=== PATIENT | female | born 1980 ===

== ENCOUNTER → 2021-10-26 | Outpatient (CLI) | payer OTHER | LOC: MHCPAIN 12:55 | DX: M25.512 Pain in left shoulder (principal); M54.12 Radiculopathy, cervical region; M47.892 Other spondylosis, cervical region | CPT/HCPCS: G0463 ==

== ENCOUNTER → 2021-11-30 | Outpatient (CLI) | payer OTHER | LOC: MHCPAIN 09:36 | DX: M47.812 Spondylosis without myelopathy or radiculopathy, cervical region (principal); M54.12 Radiculopathy, cervical region | CPT/HCPCS: G0463; J1100; Q9967 ==

== ENCOUNTER → 2022-05-17 | Outpatient (CLI) | payer OTHER | LOC: MHCPAIN 13:15 | DX: M47.812 Spondylosis without myelopathy or radiculopathy, cervical region (principal); M54.12 Radiculopathy, cervical region | CPT/HCPCS: J0461; J1100; Q9967 ==

== ENCOUNTER → 2022-11-17 | Outpatient (CLI) | payer OTHER | LOC: MHCPAIN 13:14 | DX: M47.812 Spondylosis without myelopathy or radiculopathy, cervical region (principal); M25.512 Pain in left shoulder; M54.2 Cervicalgia | CPT/HCPCS: G0463 ==